=== PATIENT | female | born 1970 | race Caucasian/White ===

== ENCOUNTER 2018-11-15 14:00 | Outpatient (RCR) ==
--- NOTE | 2018-11-09 14:36 | RS.OPPTDN ---
Subjective Date of Note: 11/09/18 Visit #: 6 Number of visits approved by Insurance: 9 Date of Evaluation: 10/31/18 Payer Source: [employer] Treatment Diagnosis: B knee pain, patellofemoral stress syndrome, R ankle pain, Current Subjective/complaints:: Patient says therapy has helped decrease her pain to the R ankle and give some improvement with strength. States she feels good about performing HEP for her knees. States since she has had to walk differently because of her ankle, she has been having R hip and back pain. Reports the current hotel she is staying in has a very firm mattress which is also giving her back and hip pain. *Precautions: n/a - Treatment Modality: Ultrasound Parameters/Method Applied: R medial ankle Continuous @ 1.5 w/cm2 x 10 mins, then 4 mins pulsed @ 0.8 w/cm2. Patient Position: Supine Interventions - Exercise/Activities/Manual Therapy Exercises/Activities: Patient received PROM of the R ankle all motions. Began with manual isometrics all directions 2x5. Continued with Latex free red tband all motions 2x10 within pain free ranges. Explained therex and reviewed HEP and instructed on tband ex for quads/hs. Total minutes of Exercise: 22 Manual Therapy: n/a HOME EXERCISE PROGRAM: pt given written HEP including: ankle isometrics, hamstring stretch, QS, SLR, SLR with ext rot. - Charges Timed Code Treatment Minutes: 36 Total Treatment Time: 36 Procedures billed for this date of service:: ex, u/s Assessment: Patient admitted she needed to leave early due to having meetings to attend. She is experiencing improved pain to the ankle and knees as well as noticing improved strength. She is able to perform all therex with little c/o' s. 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
--- NOTE | 2018-11-12 15:01 | RS.OPPTDN ---
Subjective Date of Note: 11/12/18 Visit #: 7 Number of visits approved by Insurance: 9 Date of Evaluation: 10/31/18 Payer Source: [employer] Treatment Diagnosis: B knee pain, patellofemoral stress syndrome, R ankle pain, Current Subjective/complaints:: Patient reports elevated pain today,has stumped her toe a couple of times,causing the R ankle and knees to hurt more. *Precautions: n/a Pain Assessment - Pain Description Pain Location: knees and R ankle Pain Description: Dull, Aching, Chronic Current Pain Intensity: 4 in R ankle ,3 in knees Other Comments regarding Pain:: R ankle was 7/1o ,knees 6/10 prior to PT - Treatment Modality: Ultrasound Parameters/Method Applied: 10 mins. to R ankle ,cont. mode @ 12.5 w/cm2. - Heat/Cryotherapy Treatment: Cryotherapy (20 mins. to knees and r ankle after exercises) Interventions - Exercise/Activities/Manual Therapy Exercises/Activities: Patient received PROM of the R ankle all motions. Began with manual isometrics all directions 2x5. Continued with Latex free red tband all motions 3x10 within pain free ranges. LE strengthening of ankle pumps,SLR, SLR for VMO,quad sets. Total minutes of Exercise: 30 Manual Therapy: n/a Total minutes of Manual Therapy: 0 HOME EXERCISE PROGRAM: pt given written HEP including: ankle isometrics, hamstring stretch, QS, SLR, SLR with ext rot. - Charges Timed Code Treatment Minutes: 40 Total Treatment Time: 60 Procedures billed for this date of service:: US,ex 2,cp Assessment: Patient reports relief after PT today.She has improved quad strength.The R heel cord tightness limits her R ankle dorsiflexion.She is complnt to HEP and all recommendations from the therapy staff. 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 skilled PT for 2 more sessions per orders,reduce/eliminate R ankle and knee pain.
--- NOTE | 2018-11-14 15:33 | RS.OPPTDN ---
Subjective Date of Note: 11/14/18 Visit #: 8 Number of visits approved by Insurance: 9 Date of Evaluation: 10/31/18 Payer Source: [employer] Treatment Diagnosis: B knee pain, patellofemoral stress syndrome, R ankle pain, Current Subjective/complaints:: Patient reports the US helps the R ankle pain significantly. *Precautions: n/a Pain Assessment - Pain Description Pain Location: knees ,R ankle Pain Description: Tightness, Dull, Aching, Chronic Current Pain Intensity: 4 knees,5 R ankle - Treatment Modality: Ultrasound Parameters/Method Applied: 10 mins. @ 1.5 w/cm2 to R ankle - Heat/Cryotherapy Treatment: Cryotherapy (20 mins.to knees and R ankle after ex) Interventions - Exercise/Activities/Manual Therapy Exercises/Activities: Patient received PROM of the R ankle all motions. Began with manual isometrics all directions 2x5. Continued with Latex free red tband all motions 3x10 within pain free ranges. LE strengthening of ankle pumps,SLR, SLR for VMO,quad sets. Total minutes of Exercise: 25 Manual Therapy: n/a Total minutes of Manual Therapy: 0 HOME EXERCISE PROGRAM: pt given written HEP including: ankle isometrics, hamstring stretch, QS, SLR, SLR with ext rot. - Charges Timed Code Treatment Minutes: 35 Total Treatment Time: 55 Procedures billed for this date of service:: ex 2,US,cp Assessment: Patient has improved quad strength bilaterally ,along with less intense knee and R ankle pain after session today.Her eccentric control for quads is improved .She has less antalgic gait today.She is compliant to HEP, motivated to improve. 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 skilled PT one more session ,initiate D/C plan.
--- NOTE | 2018-11-15 15:32 | RS.OPPTDN ---
Subjective Date of Note: 11/15/18 Visit #: 9 Number of visits approved by Insurance: 9 Date of Evaluation: 10/31/18 Payer Source: [employer] Treatment Diagnosis: B knee pain, patellofemoral stress syndrome, R ankle pain, Current Subjective/complaints:: Patient feels she has benefitted from the therapy,plans to continue the exercises and pain control. *Precautions: n/a Pain Assessment - Pain Description Pain Location: knees ,R ankle Current Pain Intensity: not rated today - Treatment Modality: Ultrasound Parameters/Method Applied: 10 mins. to R ankle ,cont. mode @ 1.5 w/cm2 Patient Position: Supine - Heat/Cryotherapy Treatment: Cryotherapy (15 mins. to knees and R ankle after exercises) Interventions - Exercise/Activities/Manual Therapy Exercises/Activities: Began with manual isometrics all directions 2x5. Continued with Latex free red tband all motions 3x10 within pain free ranges. LE strengthening of ankle pumps,SLR,SLR for VMO,quad sets. Total minutes of Exercise: 20 Manual Therapy: n/a Total minutes of Manual Therapy: 0 HOME EXERCISE PROGRAM: pt given written HEP including: ankle isometrics, hamstring stretch, QS, SLR, SLR with ext rot. - Charges Timed Code Treatment Minutes: 30 Total Treatment Time: 45 Procedures billed for this date of service:: ex,US,cp Assessment: Patient has met rehab potential .She has better understanding of pain control and joint protecrtion when exercising .She is aware of D/C plan today. Patient Education: Education of diagnosis, Body/Joint mechanics, Home Exercise Program, Home Safety, Activity Modification, Education of Plan of Care Patient demonstrates compliance with HEP?: Yes Short Term Goals Goal #1: pt independent with initial HEP Goal to be met by: 11/02/18 Progress towards Goal:: Met Goal #2: Decrease edema B knees and R ankle Goal to be met by: 11/02/18 Progress towards Goal:: Met Goal #3: Decrease pain B knees and R ankle < 5/10 Goal to be met by: 11/02/18 Progress towards Goal:: Met Halfway Goals Goal #1: Improve strength B quads/hamstrings 4 to 4+/5 Goal to be met by: 11/19/18 (goal dates extended) Progress towards goal: Met Goal #2: Improve ROM R ankle Goal to be met by: 11/19/18 (goal dates extended) Progress towards goal: Partially Met (limited DF due to pain in the dorsum of foot) Goal #3: pt report able to perform normal work duties with less pain Goal to be met by: 11/19/18 (goal dates extended) Progress towards goal: Partially Met (dependent upon how long she is on her feet.) Plan Dates of Halfway Goals: 11/19/18 Expiration date of current Insurance Approval:: 11/19/18 PLAN: D/C due to rehab potential met at this time.
--- NOTE | 2018-11-15 15:32 | RS.QUICKDC ---
Discharge from PT Date of Discharge: 11/15/18 Number of Visits: 9 Reason for Discharge: Order was for 9 sessions ,is independent in HEP.
== END 2018-12-08 23:59 ==
PROVIDERS: ATTEND Orthopaedic Surgery
DX: S93.401D Sprain of unspecified ligament of right ankle, subsequent encounter (principal)